=== PATIENT | female | born 1970 | race Caucasian/White ===

== ENCOUNTER 2017-05-04 06:32 | Day surgery (SDC) | payer BC ==
[~2017-05-04] VITALS: Ht 162.6 cm; Wt 70.3 kg
[~2017-05-04 06:32] MED LIST: ADVIL200 MG PO; EXCEDRIN MIGRA1 EAC3 PO; HAIR SKIN NAIL1 EACH PO; MAGNESIUM/CALCIUM PO; VIVISCAL PO
[2017-05-04 07:12] VITALS: BP 132/73
[2017-05-04] MEDS ORDERED: IBUPROFEN800 MG PO (10:43)
[2017-05-04] MEDS ORDERED: ENDOCET 5-3251 EACH PO (10:43)
[2017-05-04 12:56] VITALS: BP 115/61
[2017-05-04 13:56] VITALS: BP 119/63
[2017-05-04 15:44] VITALS: BP 98/65
[2017-05-04 17:50] VITALS: BP 127/72
== END 2017-05-04 17:57 | disposition home or self-care (01) ==
LOC: SDC 06:32
DX: N92.0 Excessive and frequent menstruation with regular cycle (principal); N94.6 Dysmenorrhea, unspecified; G89.29 Other chronic pain; R10.2 Pelvic and perineal pain; N80.0 Endometriosis of uterus; K66.8 Other specified disorders of peritoneum; N13.5 Crossing vessel and stricture of ureter without hydronephrosis; N80.8 Other endometriosis; Z87.891 Personal history of nicotine dependence; Z80.3 Family history of malignant neoplasm of breast; Z82.3 Family history of stroke
CPT/HCPCS: 88304; 88307; J0131; J0330; J0690; J1100; J1170; J1885; J2250; J2405; J2710; J2765; J3010